=== PATIENT | female | born 2000 | race African-American/Black ===

== ENCOUNTER 2025-02-26 15:26 | Emergency (ER) | payer OTHER ==
[~2025-02-26] VITALS: Ht 162.6 cm; Wt 45.0 kg
[2025-02-26 19:10] LABS: BASO # 0.0 10^3/uL (0.0-0.2); BASO % 0.6 % (0.0-1.0); EOS # 0.0 10^3/uL (0.0-0.5); EOS % 0.5 % (0.0-3.0); LYMPH # 2.2 10^3/uL (1.5-5.0); LYMPH % 33.1 % (24.0-44.0); MONO # 0.4 10^3/uL (0.0-0.8); MONO % 5.3 % (2.0-8.0); NEUTROPHILS # 4.0 10^3/uL (1.5-8.5); NEUTROPHILS % 60.3 % (36.0-66.0); PLATELET COUNT, AUTOMATED 313 10^3/uL (150-450)
[2025-02-26 19:16] LABS: KETONE, URINE AUTO RFX 1+ mg/dL (NEGATIVE); LEUKOCYTE ESTERASE UR AUTO RFX NEGATIVE (NEGATIVE); MUCUS, URINE RFX SMALL (NEGATIVE); NITRITE, URINE AUTO RFX NEGATIVE (NEGATIVE); RBC, URINE AUTO RFX 43 /HPF (0-3); SQUAM EPITHELIAL CELL UR AURFX 1 /HPF (0-6); WBC, URINE AUTO RFX 4 /HPF (0-3)
[2025-02-26 19:36] LABS: CALCIUM LEVEL 10.0 MG/DL (8.5-10.1); CARBON DIOXIDE LEVEL 25 MMOL/L (20-31); CHLORIDE LEVEL 104 MMOL/L (98-107); CREATININE FOR GFR 0.59 MG/DL (0.55-1.30); GLOMERULAR FILTRATION RATE > 90.0 (>60); HCG, SERUM QUANTITATIVE < 2.6 MIU/ML (<4.2); POTASSIUM SERUM 4.0 MMOL/L (3.5-5.1); SODIUM LEVEL 141 MMOL/L (136-145)
[2025-02-26] MEDS ORDERED: MIRA3350 PO (22:32)
[2025-02-26 22:39] VITALS: BP 128/78; TEMP 98.2; O2SAT 100
== END 2025-02-26 22:44 | disposition home or self-care (01) ==
LOC: M ED 15:26
DX: N93.9 Abnormal uterine and vaginal bleeding, unspecified (principal); K59.00 Constipation, unspecified; Z79.899 Other long term (current) drug therapy

== ENCOUNTER 2025-06-12 09:43 | Emergency (ER) | payer OTHER ==
[~2025-06-12] VITALS: Ht 162.6 cm; Wt 46.3 kg
[~2025-06-12 09:43] MED LIST: MIRA3350 PO
[2025-06-12 11:05] LABS: KETONE, URINE AUTO RFX NEGATIVE (NEGATIVE); LEUKOCYTE ESTERASE UR AUTO RFX NEGATIVE (NEGATIVE); NITRITE, URINE AUTO RFX NEGATIVE (NEGATIVE); RBC, URINE AUTO RFX 1 /HPF (0-3); SQUAM EPITHELIAL CELL UR AURFX 0 /HPF (0-6); WBC, URINE AUTO RFX 0 /HPF (0-3)
[2025-06-12 11:11] LABS: URINE PREG TEST NEGATIVE (NEGATIVE)
[2025-06-12 12:01] VITALS: BP 118/71; TEMP 97.8; O2SAT 97
== END 2025-06-12 12:10 | disposition home or self-care (01) ==
LOC: M ED 09:43
DX: N91.0 Primary amenorrhea (principal); Z79.899 Other long term (current) drug therapy

== ENCOUNTER 2025-06-17 12:10 | Emergency (ER) | payer OTHER ==
[~2025-06-17] VITALS: Ht 162.6 cm; Wt 45.8 kg
[2025-06-17] MEDS ORDERED: FERR325T19 (12:27)
[2025-06-17] MEDS ORDERED: CLAR5TAB7 PO (17:19)
[2025-06-17 17:23] VITALS: BP 110/65; TEMP 98.6; O2SAT 99
== END 2025-06-17 17:24 | disposition home or self-care (01) ==
LOC: M ED 12:10
DX: J06.9 Acute upper respiratory infection, unspecified (principal); Z79.899 Other long term (current) drug therapy